=== PATIENT | male | born 1985 | race Caucasian/White ===

== ENCOUNTER 2016-06-04 11:21 | Emergency (ER) | payer BC ==
--- NOTE | 2016-06-04 11:41 | EDM.PDOC ---
ED HPI Trauma - General Chief Complaint: Lower Extremity Injury/Pain Stated Complaint: DVT CHECK Time Seen by Provider: 06/04/16 11:37 Source: Reports: Patient History Limitations: Reports: No limitations - History of Present Illness INITIAL COMMENTS - FREE TEXT/NARRATIVE: HISTORY AND PHYSICAL: [31-year-old male presenting with calf pain right lower leg. He had surgery 3 weeks ago to his right lateral foot] History of Present Illness: [Several days pain to his right lower leg] Review of Systems: As per history of present illness and below otherwise all systems reviewed and negative. Past medical history: As per history of present illness and as reviewed below otherwise noncontributory. Surgical history: As per history of present illness and as reviewed below otherwise noncontributory. Social history: No reported history of drug or alcohol abuse. Family history: As per history of present illness and as reviewed below otherwise noncontributory. Physical exam: HEENT: Atraumatic, normocehpalic, pupils reactive, negative for conjunctival pallor or scleral icterus, mucous membranes moist, throat clear, neck supple, nontender, trachea midline. Lungs: Clear to auscultation, breath sounds equal bilaterally, chest non tender. Heart: S1S2, regular, negative for clicks, rubs, or JVD. Abdomen: Soft, nondistended, nontender. Negative for masses or hepatossplenmegaly. Negative for costovertebral tenderness. Pelvis: Stable nontender. Genitourinary: Deferred. Rectal: Deferred Extremities: Atraumatic, negative for cords or calf pain. Compression to right lower calf does not elicit pain. Healing scar noted to the right lateral foot. Neurovascular unremarkable. Neuro: Awake, alert, oriented. Cranial nerves II through XII unremarkable. Cerebellum unremarkable. Motor and sensory unremarkable throughout. Exam nonfocal. Diagnostics: [Ultrasound venous Doppler negative for DVT] Therapeutics: [] Impression: [Right lower leg pain] Plan: [Ibuprofen 2 tablets 3 times daily Symptomatic measures were reviewed with patient Follow up with your primary care Definitive disposition and diagnosis as appropriate pending reevaluation and review of above. Occurred When: last week Occurred Where: home Method of Injury: unknown, other (Foot surgery recent) Severity: moderate Pain/Injury Location: Reports: lower extremity, right Associated Symptoms: Reports: no other symptoms Allergies/ADRs: Allergies No Known Allergies Allergy (Verified 06/04/16 11:42) Home Medications: Ambulatory Orders Ibuprofen [Advil] 200 mg PO DAILY 06/04/16 [Confirmed 06/04/16] Review of Systems - Review of Systems Review Of Systems: ROS reveals no pertinent complaints other than HPI. Trauma Exam - Physical Exam Exam: See Below (See dictation) Course - Vital Signs Last Recorded V/S: Last Vital Signs Temp 36.6 C 06/04/16 11:51 Pulse 65 06/04/16 11:51 Resp 18 06/04/16 11:51 BP 123/73 06/04/16 11:51 Pulse Ox 98 06/04/16 11:51 - Orders/Labs/Meds Orders: Active Orders 24 hr Category Date Time Status Venous Doppler Lwr Ext Rt [US] Stat Exams 06/04/16 11:41 Taken Departure - Departure Time of Disposition: 12:32 Disposition: Home, Self-Care 01 Condition: good Clinical Impression: Leg pain, right Forms: ED Department Discharge Additional Instructions: The following information is given to patients seen in the emergency department who are being discharged to home. This information is to outline your options for follow-up care. We provide all patients seen in our emergency department with a follow-up referral. The need for follow-up, as well as the timing and circumstances, are variable depending upon the specifics of your emergency department visit. If you don't have a primary care physician on staff, we will provide you with a referral. We always advise you to contact your personal physician following an emergency department visit to inform them of the circumstance of the visit and for follow-up with them and/or the need for any referrals to a consulting specialist. The emergency department will also refer you to a specialist when appropriate. This referral assures that you have the opportunity for followup care with a specialist. All of these measure are taken in an effort to provide you with optimal care, which includes your followup. Under all circumstances we always encourage you to contact your private physician who remains a resource for coordinating your care. When calling for followup care, please make the office aware that this follow-up is from your recent emergency room visit. If for any reason you are refused follow-up, please contact the emergency department at and asked to speak to the emergency department charge nurse. Use ibuprofen for discomfort 2 tablets 3 times daily Follow up with her primary care provider - My Orders Last 24 Hours: My Active Orders 06/04/16 11:41 Venous Doppler Lwr Ext Rt [US] Stat - Assessment/Plan Last 24 Hours: My Active Orders 06/04/16 11:41 Venous Doppler Lwr Ext Rt [US] Stat
[2016-06-04 14:28] VITALS: BP 118/77
--- NOTE | 2016-06-06 16:06 | US ---
EXAM DATE: 06/04/16 PATIENT'S AGE: 31 Patient: KAITLIN CALHOUN Facility: [place], [place] Site Site : 1985 Study: US Extremity Right [id number]/13/2017 12:24:43 PM Ordering Physician: esequiel hi Final Report: INDICATION: Leg pain. Post surgical. TECHNIQUE: Ultrasound venous duplex lower right extremity. Compression venous exam was performed using fernandes-scale, color Doppler, and spectral Doppler imaging. COMPARISON: None. FINDINGS: Sonographic imaging demonstrates the right common femoral, deep femoral, superficial femoral, popliteal, posterior tibial and greater saphenous and the contralateral left common femoral veins to be fully compressible with normal color Doppler blood flow. IMPRESSION: No DVT identified in the right lower extremity. Dictated by Teja Sarabia MD @ 06/04/2016 1:03:54 PM Dictated by: Teja Sarabia MD @ 06/04/2016 13:04:18 (Electronic Signature) Report Signed by Proxy and Original Signed Document filed in the Medical Record. MTDD
== END 2016-06-04 12:50 | disposition home or self-care (01) ==
LOC: MW.ED 11:21
DX: M79.661 Pain in right lower leg (principal); Z79.899 Other long term (current) drug therapy
CPT/HCPCS: 93971-26-RT; 93971-RT; 99282; 99283-25

== ENCOUNTER 2016-11-26 09:26 | Emergency (ER) | payer BC ==
[2016-11-26] MEDS ORDERED: Ibuprofen 800 MG Tab PO ONE (10:04)
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
[2016-11-26] MEDS ORDERED: Ibuprofen 800 MG Tab ONE (10:10)
[2016-11-26 11:39] LABS: CHLORIDE,CL 107 mmol/L (98-110); SODIUM,NA 139 mmol/L (136-146)
[2016-11-26 11:47] VITALS: BP 129/72
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
== END 2016-11-26 11:44 | disposition home or self-care (01) ==
LOC: MW.ED 09:26
DX: S70.02XA Contusion of left hip, initial encounter (principal); S30.811A Abrasion of abdominal wall, initial encounter; Z79.899 Other long term (current) drug therapy; W18.01XA Striking against sports equipment with subsequent fall, initial encounter; Y93.01 Activity, walking, marching and hiking
CPT/HCPCS: 36415; 73552; 74177; 76870; 80053; 81001; 85025; 93976; 99284; A9270; 99282

== ENCOUNTER 2018-05-28 21:50 | Emergency (ER) | payer BC ==
--- NOTE | 2018-05-28 22:19 | EDM.PDOC ---
ED HPI GENERAL MEDICAL PROBLEM - General Chief Complaint: Lower Extremity Injury/Pain Stated Complaint: PT HURT RT FT Time Seen by Provider: 05/28/18 22:13 - History of Present Illness INITIAL COMMENTS - FREE TEXT/NARRATIVE: HISTORY AND PHYSICAL: History of present illness: The patient is a healthy 33-year-old male with a history of surgery on his right foot about 2 years ago and presents with complaints after twisting it and hearing a pop in his foot earlier today while playing soccer. He has no ankle or toe pain and no proximal leg knee or hip pain. He did not fall to the ground pass out or black out. He says he is concerned because of his prior surgeries and he has sprained that area since his surgery and is not sure if that's all he did and would like evaluation. Review of systems: As per history of present illness and below otherwise all systems reviewed and negative. Past medical history: As per history of present illness and as reviewed below otherwise noncontributory. Surgical history: As per history of present illness and as reviewed below otherwise noncontributory. Social history: No reported history of drug or alcohol abuse. Family history: As per history of present illness and as reviewed below otherwise noncontributory. Physical exam: HEENT: Atraumatic, normocephalic, negative for conjunctival pallor or scleral icterus, mucous membranes moist, throat clear, neck supple, nontender, trachea midline. Lungs: Clear to auscultation, breath sounds equal bilaterally, chest nontender. Heart: S1S2, regular rate and rhythm no overt murmurs Abdomen: Soft, nondistended, nontender. NABS Pelvis: Stable nontender. No lateral hip tenderness on the right Genitourinary: Deferred. Rectal: Deferred. Extremities: Atraumatic appearing throughout all extremities including the right foot and full range of motion. There is some mild tenderness on the dorsal aspect of the foot without localization in one tubular area and there is no gross soft tissue swelling appreciated. There is no metatarsal tenderness at the fifth metatarsal no heel or ankle tenderness and no proximal tib-fib knee or thigh tenderness or defects deformities. As no ecchymosis seen at the foot The legs are, negative for cords or calf pain. Neurovascular unremarkable. Neuro: Awake, alert, oriented. Cranial nerves II through XII unremarkable. Cerebellum unremarkable. Motor and sensory unremarkable throughout. Exam nonfocal. Diagnostics: Right foot x-ray Therapeutics: Patient declined pain medication Ortho boot crutches Impression: Right foot injury Definitive disposition and diagnosis as appropriate pending reevaluation and review of above. Right foot Pain Score (Numeric/FACES): 8 - Related Data Allergies Allergy/AdvReac Type Severity Reaction Status Date / Time No Known Allergies Allergy Verified 05/28/18 22:11 Home Meds: Home Meds Ibuprofen [Advil] 200 mg PO DAILY 06/04/16 [History] Past Medical History HEENT History: Reports: Other (See Below) Other HEENT History: bilateral eyes - Past Surgical History Musculoskeletal Surgical History: Reports: Shoulder Surgery Social & Family History - Family History Family Medical History: Noncontributory - Caffeine Use Caffeine Use: Reports: None Review of Systems - Review of Systems Review Of Systems: ROS reveals no pertinent complaints other than HPI. ED EXAM, GENERAL - Physical Exam Exam: See Below (See dictation) Course - Vital Signs Last Recorded V/S: Last Vital Signs Temp 36.3 C 05/28/18 22:12 Pulse 98 05/28/18 22:12 Resp 18 05/28/18 22:12 BP 142/89 H 05/28/18 22:12 Pulse Ox 97 05/28/18 22:12 - Orders/Labs/Meds Orders: Active Orders 24 hr Category Date Time Status DME for Discharge [COMM] Stat Oth 05/28/18 22:55 Ordered Departure - Departure Time of Disposition: 22:56 Disposition: Home, Self-Care 01 Condition: Good Clinical Impression: Right foot injury Qualifiers: Encounter type: initial encounter Qualified Code(s): S99.921A - Unspecified injury of right foot, initial encounter - Discharge Information Referrals: Jones Daniels MD [Primary Care Provider] - Forms: ED Department Discharge Additional Instructions: The following information is given to patients seen in the emergency department who are being discharged to home. This information is to outline your options for follow-up care. We provide all patients seen in our emergency department with a follow-up referral. The need for follow-up, as well as the timing and circumstances, are variable depending upon the specifics of your emergency department visit. If you don't have a primary care physician on staff, we will provide you with a referral. We always advise you to contact your personal physician following an emergency department visit to inform them of the circumstance of the visit and for follow-up with them and/or the need for any referrals to a consulting specialist. The emergency department will also refer you to a specialist when appropriate. This referral assures that you have the opportunity for followup care with a specialist. All of these measure are taken in an effort to provide you with optimal care, which includes your followup. Under all circumstances we always encourage you to contact your private physician who remains a resource for coordinating your care. When calling for followup care, please make the office aware that this follow-up is from your recent emergency room visit. If for any reason you are refused follow-up, please contact the [facility] emergency department at and ask to speak to the emergency department charge nurse. Dr Jeff Bain [address] [place] [id number] Ice and elevate the foot and wear the boot and use crutches until you're followed up by the whizzer. Please call our whizzer using resources given to above and make sure to say you're in the ED and need follow-up for this injury. Use [id number] ibuprofen/Motrin or Tylenol for pain and discomfort. Return to ER as needed and as discussed - My Orders Last 24 Hours: My Active Orders 05/28/18 22:55 DME for Discharge [COMM] Stat - Assessment/Plan Last 24 Hours: My Active Orders 05/28/18 22:55 DME for Discharge [COMM] Stat
--- NOTE | 2018-05-28 22:38 | CR ---
INDICATION: Foot pain from soccer injury TECHNIQUE: Foot radiograph 3 views right COMPARISON: None FINDINGS: Bone: No acute fractures or aggressive bone lesions are identified. Previous ORIF with metallic plate and screws are seen near the base of the 5th metatarsal. Joint: The visualized hindfoot, midfoot, and forefoot joints are unremarkable in appearance. No significant ankle effusion is seen. Soft tissue: Unremarkable. No radiopaque foreign bodies are seen. IMPRESSION: 1. No acute osseous injuries or abnormalities are noted. Dictated by Oneil Dillon MD @ 05/28/2018 10:36:11 PM Dictated by: Oneil Dillon MD @ 05/28/2018 22:36:15 (Electronically Signed)
[2018-05-28 23:40] VITALS: BP 117/67
== END 2018-05-28 23:15 | disposition home or self-care (01) ==
LOC: MW.ED 21:50
DX: S99.921A Unspecified injury of right foot, initial encounter (principal); X50.1XXA Overexertion from prolonged static or awkward postures, initial encounter; Z79.1 Long term (current) use of non-steroidal anti-inflammatories (NSAID)
CPT/HCPCS: 73630-26-RT; 73630-RT; 99283; 99283-25